=== PATIENT | male | born 1965 | race Caucasian/White ===

== ENCOUNTER 2019-07-10 23:59 | Inpatient (IN) | payer BC ==
[~2019-07-10] VITALS: Ht 180.3 cm; Wt 81.8 kg
[2019-07-11] MEDS ORDERED: mag hydrox/Alum hydrox/simeth 30ml oral suspension PO PRN (00:10)
[2019-07-11] MEDS ORDERED: acetaminophen 325mg tablet PO PRN ×2 (00:10)
[2019-07-11] MEDS ORDERED: HYDROcodone/acetaminophen 10/325mg tab PO PRN (00:10)
[2019-07-11] MEDS ORDERED: ondansetron/PF 4mg/2ml inj IV PRN (00:10)
[2019-07-11] MEDS ORDERED: magnesium hydroxide 30ml (MOM) UD suspension PO PRN (00:10)
--- NOTE | 2019-07-11 00:37 | NUR ---
dr amador at bedside for admission.
--- NOTE | 2019-07-11 01:13 | NUR ---
LITZY FORTUNE CONFIRMED WITH MD FLANAGAN THAT PT CAN EAT OFFERED PT GRAMCRACTERS / MILK
--- NOTE | 2019-07-11 02:33 | NUR ---
Patient in room . I have received report from Faby SHELL and had the opportunity to ask questions and assume patient care.
[2019-07-11 02:43] VITALS: BP 116/89
[2019-07-11] MEDS ORDERED: NO HOME MEDS (02:53)
--- NOTE | 2019-07-11 03:30 | NUR ---
pt refused to be darted because he wanted to rest
[2019-07-11 06:00] VITALS: BP 116/71
--- NOTE | 2019-07-11 06:30 | NUR ---
Problems reprioritized. Patient report given, questions answered & plan of care reviewed with Areli SHELL.
--- NOTE | 2019-07-11 06:35 | NUR ---
Patient in room PCU 3025. I have received report from Arline SHELL and had the opportunity to ask questions and assume patient care. Pt is in bed sleeping, will continue to monitor.
[2019-07-11] MEDS: enoxaparin 80mg/0.8ml syringe SUBCUT SCH ×2 (09:36→19:46)
[2019-07-11 10:21] LABS: HEMATOCRIT 36.2 % (42.0-52.0); LYMPHOCYTES # (AUTO) 2.2 X10'3 (1.1-4.8); LYMPHOCYTES % (AUTO) 22.1 % (21-51); NEUTROPHILS # (AUTO) 6.4 X10'3 (1.8-7.7)
[2019-07-11 10:22] LABS: BASOPHILS # (AUTO) 0.1 X10'3 (0-0.2); BASOPHILS % (AUTO) 1.2 % (0-1); EOSINOPHILS # (AUTO) 0.4 X10'3 (0-0.9); EOSINOPHILS % (AUTO) 3.5 % (0-6); MEAN CORPUSCULAR HEMOGLOBIN 29.3 PG (27.0-31.0); MEAN CORPUSCULAR HGB CONC 33.2 g/dL (33.0-36.5); MEAN CORPUSCULAR VOLUME 88.2 FL (78-98); MEAN PLATELET VOLUME 8.4 FL (7.4-10.4); MONOCYTES # (AUTO) 0.9 X10'3 (0-0.9); MONOCYTES % (AUTO) 9.4 % (2-12); NEUTROPHILS % (AUTO) 63.8 % (42-75); PLATELET COUNT 308 X10'3 (140-440); RED CELL DISTRIBUTION WIDTH 15.1 % (11.5-14.5)
[2019-07-11 10:25] LABS: ALBUMIN 3.2 G/DL (3.4-5.0); ANION GAP 11 (8-16); BLOOD UREA NITROGEN 11 MG/DL (7-18); BUN/CREATININE RATIO 11.8 (5.4-32.0); CALCIUM 8.8 MG/DL (8.5-10.1); CHLORIDE 107 MMOL/L (99-107); CREATININE 0.93 MG/DL (0.60-1.10); GLUCOSE 77 MG/DL (70-104); POTASSIUM 4.3 MMOL/L (3.5-5.1); SODIUM 142 MMOL/L (135-145); TOTAL CARBON DIOXIDE 23.6 MMOL/L (24-32); eGFR 85 ML/MIN
[2019-07-11 11:00] VITALS: BP 106/66
[2019-07-11 15:00] VITALS: BP 109/69
--- NOTE | 2019-07-11 18:00 | NUR ---
Patient in room PCU 3025. I have received report from Zeynep SHELL and had the opportunity to ask questions and assume patient care.
--- NOTE | 2019-07-11 18:22 | NUR ---
Problems reprioritized. Patient report given, questions answered & plan of care reviewed with Roro SHELL.
[2019-07-11 19:00] VITALS: BP 96/62
[2019-07-11] MEDS: HYDROcodone/acetaminophen 5mg/325mg tablet PO PRN (20:00)
[2019-07-11] MEDS ORDERED: temazepam 15mg capsule PO PRN (21:00)
[2019-07-11 22:00] VITALS: BP 101/97
[2019-07-12 02:00] VITALS: BP 89/54
--- NOTE | 2019-07-12 05:20 | NUR ---
Patient slept well all night, reminded him of needing a urine sample, will continue to monitor.
[2019-07-12 06:00] VITALS: BP 104/75
--- NOTE | 2019-07-12 06:18 | NUR ---
Patient in room PCU 3025. I have received report from Roro SHELL and had the opportunity to ask questions and assume patient care. Pt is awake in bed, requesting pain meds with his AM medication d/t back pain, all other needs met, will continue to monitor.
--- NOTE | 2019-07-12 06:27 | NUR ---
Problems reprioritized. Patient report given, questions answered & plan of care reviewed with Zeynep SHELL.
[2019-07-12 06:41] LABS: URINE AMPHETAMINE SCREEN NEGATIVE (Neg); URINE BARBITUATE SCREEN NEGATIVE (Neg); URINE BENZODIAZEPINES SCREEN NEGATIVE (Neg); URINE CANNABINOID SCREEN NEGATIVE (Neg); URINE COCAINE SCREEN NEGATIVE (Neg); URINE METHADONE SCREEN NEGATIVE (Neg); URINE OPIATE SCREEN POSITIVE (Neg); URINE PHENCYCLIDINE SCREEN NEGATIVE (Neg)
[2019-07-12] MEDS: HYDROcodone/acetaminophen 5mg/325mg tablet PO PRN ×3 (07:06→16:49)
[2019-07-12] MEDS: enoxaparin 80mg/0.8ml syringe SUBCUT SCH ×2 (07:06→19:11)
[2019-07-12 07:18] LABS: BASOPHILS # (AUTO) 0.1 X10'3 (0-0.2); BASOPHILS % (AUTO) 1.1 % (0-1); EOSINOPHILS # (AUTO) 0.4 X10'3 (0-0.9); EOSINOPHILS % (AUTO) 5.2 % (0-6); HEMATOCRIT 37.3 % (42.0-52.0); HEMOGLOBIN 12.4 g/dl (14.0-17.9); LYMPHOCYTES # (AUTO) 2.4 X10'3 (1.1-4.8); LYMPHOCYTES % (AUTO) 28.7 % (21-51); MEAN CORPUSCULAR HEMOGLOBIN 28.7 PG (27.0-31.0); MEAN CORPUSCULAR HGB CONC 33.2 g/dL (33.0-36.5); MEAN CORPUSCULAR VOLUME 86.5 FL (78-98); MONOCYTES # (AUTO) 0.7 X10'3 (0-0.9); MONOCYTES % (AUTO) 8.8 % (2-12); NEUTROPHILS # (AUTO) 4.6 X10'3 (1.8-7.7); NEUTROPHILS % (AUTO) 56.2 % (42-75); PLATELET COUNT 387 X10'3 (140-440); RED BLOOD COUNT 4.32 X10'6 (4.70-6.10); RED CELL DISTRIBUTION WIDTH 14.7 % (11.5-14.5); WHITE BLOOD COUNT 8.2 X10'3 (4.5-11.0)
[2019-07-12 07:28] LABS: ALBUMIN 2.9 G/DL (3.4-5.0); ANION GAP 8 (8-16); BLOOD UREA NITROGEN 11 MG/DL (7-18); BUN/CREATININE RATIO 10.6 (5.4-32.0); CALCIUM 8.7 MG/DL (8.5-10.1); CHLORIDE 109 MMOL/L (99-107); CREATININE 1.04 MG/DL (0.60-1.10); GLUCOSE 96 MG/DL (70-104); POTASSIUM 4.4 MMOL/L (3.5-5.1); SODIUM 144 MMOL/L (135-145); TOTAL CARBON DIOXIDE 27.1 MMOL/L (24-32); eGFR 75 ML/MIN
[2019-07-12 07:29] LABS: PARTIAL THROMBOPLASTIN TIME 31 SECONDS (22-32)
[2019-07-12] MEDS ORDERED: APIX5TAB3 PO (10:59)
[2019-07-12 11:00] VITALS: BP 111/64
[2019-07-12 15:00] VITALS: BP 102/69
--- NOTE | 2019-07-12 18:00 | NUR ---
Patient in room PCU 3025. I have received report from Zeynep SHELL. and had the opportunity to ask questions and assume patient care.
--- NOTE | 2019-07-12 18:39 | NUR ---
Problems reprioritized. Patient report given, questions answered & plan of care reviewed with Roro SHELL.
--- NOTE | 2019-07-12 20:59 | NUR ---
DISCHARGE Patient has left with all belongings, Telemetry box removed, IV removed with cannula intact, was walked out with family members and with all paperwork. Patient was worried that [facility] has not received the fax for Eliquis prescription, no printout for prescription or fax copy was found; Patient was given hospital phone number and to ask for medical records for a prescription and fax to [facility] again.
== END 2019-07-12 21:00 | disposition home or self-care (01) | DRG 299 ==
LOC: ER 07-11 → PCU 3S 07-11 02:53
PROVIDERS: ADMIT Hospitalist; ATTEND Internal Medicine
DX: I82.402 Acute embolism and thrombosis of unspecified deep veins of left lower extremity (principal); I26.92 Saddle embolus of pulmonary artery without acute cor pulmonale; Z82.0 Family history of epilepsy and other diseases of the nervous system; Z87.891 Personal history of nicotine dependence
CPT/HCPCS: 36415; 80048; 80305; 81479; 83735; 83891; 83894; 83898; 85025; 85240; 85610; 85730; 86147; 87081; 93306; 96372; 99285; G0378; J1650